=== PATIENT | female | born 1950 | race Caucasian/White ===

== ENCOUNTER 2022-09-03 09:26 | Outpatient (CLI) | payer MEDICARE | END 2022-09-03 09:27 | disposition home or self-care (01) | LOC: CSHMAMMO 09:26 | PROVIDERS: ATTEND Family Medicine | DX: Z12.31 Encounter for screening mammogram for malignant neoplasm of breast (principal); R92.1 Mammographic calcification found on diagnostic imaging of breast; N63.20 Unspecified lump in the left breast, unspecified quadrant; Z91.89 Other specified personal risk factors, not elsewhere classified; Z98.890 Other specified postprocedural states | CPT/HCPCS: 77063; 77067 ==

== ENCOUNTER 2025-03-15 11:29 | Outpatient (CLI) | payer MEDICARE | END 2025-03-15 11:30 | disposition home or self-care (01) | LOC: CSHRAD 11:29 | PROVIDERS: ATTEND Clinical Nurse Specialist Medical-Surgical | DX: M25.552 Pain in left hip (principal); M25.551 Pain in right hip; M16.12 Unilateral primary osteoarthritis, left hip | CPT/HCPCS: 73522 ==